=== PATIENT | male | born 1980 | race Caucasian/White ===

== ENCOUNTER 2016-08-23 21:10 | Emergency (ER) | payer OTHER ==
[~2016-08-23] VITALS: Ht 172.7 cm; Wt 127.8 kg
[2016-08-23 21:14] VITALS: Ht 172.7 cm; Wt 127.8 kg
[2016-08-23] MEDS ORDERED: LEVO175T3 PO (21:46)
[2016-08-23] MEDS ORDERED: TOPI100T20 PO (21:46)
[2016-08-23] MEDS ORDERED: FLUO20CA35 PO (21:46)
[2016-08-23] MEDS ORDERED: PERP1TAB10 PO (21:46)
[2016-08-23] MEDS ORDERED: SODIUM CHLORIDE 0.9% 1000ML 1,000 ML IV STA ×2 (21:54)
[2016-08-23 22:34] VITALS: TEMP 39.5
[2016-08-23 22:42] LABS: HEMATOCRIT 46.2 % (42-52); MEAN CELL VOLUME 88.8 fL (80-100); MEAN CORPUSCULAR HEMOGLOBIN 31.7 pg (25-34); MEAN CORPUSCULAR HGB CONC 35.7 g/dl (32-36); MEAN PLATELET VOLUME 9.3 fL (7.4-10.4); PLATELET COUNT 185 K/uL (130-400)
[2016-08-23 23:02] LABS: COMPLETE YES; IG% 0.3 %; LYMPH ABS # 0.73 K/uL (1.2-3.4); NEUT % 85.7 %
[2016-08-23 23:13] LABS: BLOOD UREA NITROGEN 28 mg/dl (7-18); BUN/CREATININE RATIO 21.6 (10-20); CALCIUM 8.6 mg/dl (8.5-10.1); CARBON DIOXIDE 20 mmol/L (21-32); CHLORIDE 105 mmol/L (98-107); GLUCOSE 91 mg/dl (70-99); SODIUM 138 mmol/L (136-145)
[2016-08-24] MEDS ORDERED: POTASSIUM CHLORIDE 10 MEQ TABCR PO STA (00:08)
[2016-08-24 00:29] VITALS: BP 133/89; PULSE 111; O2SAT 96
[2016-08-24] MEDS ORDERED: ONDANSETRON HOME PACK 4MG OD TAB PO ONE (00:30)
--- NOTE | 2016-08-24 03:21 | EMERGENCY ROOM VISIT NOTE ---
History First contact with patient: 21:28 Chief Complaint: DIARRHEA Stated Complaint: GLASSY EYES, DIARRHEA,VOMITING,ELEVATED TEMP History of Present Illness The patient is a 35 year old male who presents to the Emergency Room with complaints of nausea, vomiting, diarrhea and fever for the past day. Patient had undercooked chicken on accident yesterday. He's been vomiting and having diarrhea since that seems to be tapering off. He's had a low-grade temperature. Patient denies chest pain, dyspnea, neck stiffness, abdominal pain , blood or black in his stool or vomit. No recent antibiotics. No well water. Family is requesting stool testing. Review of Systems See HPI for pertinent positives & negatives. A total of 10 systems reviewed and were otherwise negative. Past Medical/Surgical History Hypothyroidism, bipolar, OCD, autism, anxiety Social History Smoking Status: Never Smoker Current/Historical Medications Scheduled Fluoxetine (Prozac), 40 MG PO DAILY Levothyroxine Sodium (Levothyroxine Sodium), 175 MCG PO DAILY Perphenazine (Trilafon), 2 MG PO DAILY Topiramate (Topamax), 100 MG PO TID Allergies Coded Allergies: No Known Allergies (Verified , 08/21/02) Physical Exam Vital Signs Date Time Temp Pulse Resp B/P Pulse Ox O2 Delivery O2 Flow Rate FiO2 08/24/16 00:29 111 18 133/89 96 Room Air 08/23/16 22:34 39.5 92 20 139/92 97 Room Air 08/23/16 22:33 39.5 93 20 137/92 97 Room Air 08/23/16 22:30 39.5 93 20 137/92 97 08/23/16 21:14 37.2 108 18 126/77 94 Room Air Pain Rating (0-10): 0 Physical Exam VITALS: Vitals are noted on the nurse's note and reviewed by myself. Vital signs stable. GENERAL: Pleasant male, in no acute distress, nondiaphoretic, well-developed well-nourished. SKIN: The skin was without rashes, erythema, edema, or bruising. There is no tenting of the skin. Capillary reflex less than 2 seconds. HEAD: Normocephalic atraumatic. EARS: External auditory canals clear, tympanic membranes pearly blunt without erythema or effusion bilaterally. EYES: Pupils equal round and reactive to light and accommodation. Conjunctivae without injection, sclerae without icterus. Extraocular movements intact. NOSE: Patent, turbinates without inflammation or discharge. No sinus tenderness. MOUTH: Mucous membranes moist. Pharynx without erythema or exudate. Uvula midline. Airway patent. Tongue does not deviate. NECK: Supple without nuchal rigidity. No lymphadenopathy. No thyromegaly. Cervical spine is nontender. No JVD. HEART: Regular rate and rhythm without murmurs gallops or rubs. LUNGS: Clear to auscultation bilaterally without wheezes, rales or rhonchi. No dullness to percussion. No retractions or accessory muscle use. ABDOMEN: Positive bowel sounds x 4. Normal tympanic percussion. Soft, nontender, without masses or organomegaly. Hamilton sign negative. No guarding or rebound tenderness. MUSCULOSKELETAL: No muscle atrophy, erythema, or edema noted. NEURO: Patient was alert and oriented to person place and time. Normal sensation to light and sharp touch. No focal neurological deficits. Medical Decision & Procedures Laboratory Results 08/23/16 22:20 Red Blood Count 5.20, Mean Corpuscular Volume 88.8, Mean Corpuscular Hemoglobin 31.7, Mean Corpuscular Hemoglobin Concent 35.7, Mean Platelet Volume 9.3, Neutrophils (%) (Auto) 85.7, Lymphocytes (%) (Auto) 12.0, Monocytes (%) (Auto) 2.0, Eosinophils (%) (Auto) 0.0, Basophils (%) (Auto) 0.0, Neutrophils # (Auto) 5.23, Lymphocytes # (Auto) 0.73, Monocytes # (Auto) 0.12, Eosinophils # (Auto) 0.00, Basophils # (Auto) 0.00 08/23/16 22:20 08/23/16 23:40 Test 08/23/16 22:20 08/23/16 22:35 White Blood Count 6.10 K/uL (4.8-10.8) Red Blood Count 5.20 M/uL (4.7-6.1) Hemoglobin 16.5 g/dL (14.0-18.0) Hematocrit 46.2 % (42-52) Mean Corpuscular Volume 88.8 fL (80-100) Mean Corpuscular Hemoglobin 31.7 pg (25-34) Mean Corpuscular Hemoglobin Concent 35.7 g/dl (32-36) Platelet Count 185 K/uL (130-400) Mean Platelet Volume 9.3 fL (7.4-10.4) Neutrophils (%) (Auto) 85.7 % Lymphocytes (%) (Auto) 12.0 % Monocytes (%) (Auto) 2.0 % Eosinophils (%) (Auto) 0.0 % Basophils (%) (Auto) 0.0 % Neutrophils # (Auto) 5.23 K/uL (1.4-6.5) Lymphocytes # (Auto) 0.73 K/uL (1.2-3.4) Monocytes # (Auto) 0.12 K/uL (0.11-0.59) Eosinophils # (Auto) 0.00 K/uL (0-0.5) Basophils # (Auto) 0.00 K/uL (0-0.2) RDW Standard Deviation 41.9 fL (36.4-46.3) RDW Coefficient of Variation 12.9 % (11.5-14.5) Immature Granulocyte % (Auto) 0.3 % Immature Granulocyte # (Auto) 0.02 K/uL (0.00-0.02) Red Blood Cell Morphology Unremarkable Anion Gap 13.0 mmol/L (3-11) Est Creatinine Clear Calc Drug Dose 104.4 ml/min Estimated GFR () 82.5 Estimated GFR (Non- 71.2 BUN/Creatinine Ratio 21.6 (10-20) Calcium Level 8.6 mg/dl (8.5-10.1) Influenza Type A Antigen Neg for Influ A (NEG) Influenza Type B Antigen Neg for Influ B (NEG) Date/Time Source Procedure Growth Status 08/23/16 22:20 Stool C.difficile Toxin B Gene (PCR) - Final No C. difficile toxin B gene detected Complete Medications Administered Medications (Trade) Dose Ordered Sig/Oyrdy Route Start Time Stop Time Status Last Admin Dose Admin Sodium Chloride 1,000 ml @ 999 mls/hr Q1H1M STAT IV 08/23/16 21:54 08/23/16 22:54 DC 08/23/16 22:39 999 MLS/HR Sodium Chloride (Nss 1000ml) 1,000 ml @ 200 mls/hr Q5H STAT IV 08/23/16 21:54 08/24/16 01:25 DC 08/23/16 21:54 200 MLS/HR Potassium Chloride (Klor-Con M10) 40 meq NOW STAT PO 08/24/16 00:08 08/24/16 00:09 DC 08/24/16 00:59 40 MEQ Ondansetron HCl (ZOFRAN ODT 4MG Home Pack) 1 homepack UD ONCE PO 08/24/16 00:30 08/24/16 00:31 DC 08/24/16 00:59 1 HOMEPACK ED Course Prior records/ancillary studies reviewed. Triage Nursing notes reviewed. Additional history obtained from the family. The patient's history was concerning for nausea, vomiting, diarrhea, and abdominal pain. Differential diagnosis: Etiologies such as gastroenteritis, food borne illness, infections, appendicitis , diverticulitis, inflammatory bowel disease, obstruction, GI bleed, biliary pathology, as well as others were entertained. Physical examination findings: As above. Abdominal examination revealed no tenderness. Vital signs reviewed and revealed stable. ER treatment provided: IV hydration 1 L NSS. Zofran On reassessment the patient felt better. Patient was tolerating p.o. intake. Diagnostics interpretation by me: The labs revealed no worrisome leukocytosis. Mild hypokalemia and this was replaced orally. Negative C. difficile Stool cultures pending This appears to be consistent with vomiting and diarrhea most likely viral in etiology. Patient did not have an acute abdomen on exam. He was well- appearing. He is tolerating fluids. Family was advised to follow-up with family medicine in a couple days for stool test results or here in the ER sooner for abdominal pain, fevers, vomiting, worsening signs or symptoms or as needed. By the evaluation outlined above emergent etiologies such as appendicitis, diverticulitis, obstruction, cardiac sources, mesenteric ischemia , aortic pathology, inflammatory bowel disease, renal colic, PUD, biliary pathology, UTI, as well as others were deemed relatively unlikely. The pt informed about the findings as listed above. All questions were answered and pleased with the treatment. Return instructions were outlined and the patient was discharged in stable condition. Outpatient prescription management: zofran Referral: The patient was referred to their primary care physician for follow-up in 2 to 3 days for a recheck of the current condition. Medical Decision As above Impression Primary Impression: Nausea vomiting and diarrhea Additional Impression: Hypokalemia Departure Information Dispostion Home / Self-Care Condition GOOD Forms WORK / SCHOOL INSTRUCTIONS, HOME CARE DOCUMENTATION FORM, Days off work : 2 Work Instructions, IMPORTANT VISIT INFORMATION Patient Instructions Vomit Diarrhea Self Care, My [facility] Additional Instructions DO NOT drive, drink alcohol, operate machinery, or perform dangerous activities today. You were given medications in the ER that can affect your ability to safely function or operate a vehicle. Zofran(odansetron) tablets 4mg: Take one and allow it to dissolve in your mouth every four to six hours as needed for nausea or vomiting. Acetaminophen(Tylenol) may be used for fever or pain. Use 1000mg every six hours as needed. Avoid using more than 3000mg in a 24 hour period. Rest and drink plenty of fluids as tolerated. Slow sips of water or sports drinks are recommended instead of large amounts all at once. Continue current medications. Once your stomach is settled start with a clear liquid diet (jello, soup broth, etc.) and then advance as tolerated. You should avoid full, heavy meals for about 24 hrs from the time your symptoms resolved. Return to the ER for persistent vomiting, fevers, abdominal pain, chest pains, difficulty breathing, black or bloody stools, worsening of your condition, or as needed. Follow up with your primary physician in 2-3 days for a recheck of your current condition and for your stool culture results. Problem Qualifiers
== END 2016-08-24 01:05 | disposition home or self-care (01) ==
LOC: C.EDB 21:11 → C.EDA 08-24 01:05
DX: R11.2 Nausea with vomiting, unspecified (principal); R19.7 Diarrhea, unspecified; E87.6 Hypokalemia; E03.9 Hypothyroidism, unspecified; F31.9 Bipolar disorder, unspecified; F84.0 Autistic disorder; F41.9 Anxiety disorder, unspecified; F42.9 Obsessive-compulsive disorder, unspecified; Z79.899 Other long term (current) drug therapy

== ENCOUNTER → 2016-11-16 | Outpatient (CLI) | payer OTHER ==
[~2016-11-16] MED LIST: FLUO20CA35 PO; LEVO175T3 PO; PERP1TAB10 PO; TOPI100T20 PO
[2016-11-16 09:46] LABS: BLOOD UREA NITROGEN 15 mg/dl (7-18); BUN/CREATININE RATIO 17.6 (10-20); CARBON DIOXIDE 23 mmol/L (21-32); CHLORIDE 111 mmol/L (98-107); CREATININE 0.84 mg/dl (0.60-1.40); GLUCOSE 104 mg/dl (70-99); POTASSIUM 3.6 mmol/L (3.5-5.1); SODIUM 141 mmol/L (136-145); TRIGLYCERIDES 89 mg/dl (0-150); VERY LOW DENSITY LIPOPROT CALC 18 mg/dl
[2016-11-16 09:49] LABS: CALCIUM 8.8 mg/dl (8.5-10.1)
[2016-11-16 09:56] LABS: CHOLESTEROL 108 mg/dl (0-200); CHOLESTEROL/HDL RATIO 2.4; HDL CHOLESTEROL 45 mg/dl; LDL CHOLESTEROL CALCULATED 45 mg/dl; THYROID STIMULATING HORMONE 0.899 uIu/ml (0.300-4.500)
== END | disposition home or self-care (01) ==
LOC: C.LAB1850 08:15
PROVIDERS: ATTEND Internal Medicine
DX: E03.9 Hypothyroidism, unspecified (principal); E66.9 Obesity, unspecified

== ENCOUNTER → 2017-08-03 | Day surgery (SDC) | payer OTHER ==
[2017-07-10 13:50] VITALS: BMI 46.0
--- NOTE | 2017-07-13 14:40 | PAT Medication Instructions ---
Service Date Jul 13, 2017. Current Home Medication List Fluoxetine (Prozac), 40 MG PO QAM Levothyroxine Sodium (Levothyroxine Sodium), 175 MCG PO QAM Perphenazine (Trilafon), 2 MG PO QAM Topiramate (Topamax), 100 MG PO TID Medication Instructions For Your Scheduled Surgery - Take the following medications the morning of surgery with a sip of water OTHERWISE NOTHING TO EAT OR DRINK AFTER MIDNIGHT: Fluoxetine (Prozac), 40 MG PO QAM Levothyroxine Sodium (Levothyroxine Sodium), 175 MCG PO QAM Perphenazine (Trilafon), 2 MG PO QAM Topiramate (Topamax), 100 MG PO TID - Take the following medications as scheduled the night before surgery: Topiramate (Topamax), 100 MG PO TID If you have any questions please call us at [phone] or [phone] or [phone]
[2017-07-13 15:33] LABS: HEMATOCRIT 42.9 % (42-52); HEMOGLOBIN 15.3 g/dL (14.0-18.0); MEAN CELL VOLUME 89.6 fL (80-100); MEAN CORPUSCULAR HEMOGLOBIN 31.9 pg (25-34); MEAN CORPUSCULAR HGB CONC 35.7 g/dl (32-36); MEAN PLATELET VOLUME 9.6 fL (7.4-10.4); PLATELET COUNT 195 K/uL (130-400); RED CELL DISTRIBUTION WIDTH CV 12.8 % (11.5-14.5); RED CELL DISTRIBUTION WIDTH SD 41.2 fL (36.4-46.3); WHITE BLOOD COUNT 7.78 K/uL (4.8-10.8)
[2017-07-13 16:24] LABS: CREATININE 0.98 mg/dl (0.60-1.40); POTASSIUM 3.9 mmol/L (3.5-5.1)
[2017-07-19 11:11] VITALS: Ht 170.2 cm; Wt 133.2 kg
[~2017-08-03] VITALS: Ht 170.2 cm; Wt 133.2 kg
[~2017-08-03] MED LIST changes: +ATROPINE SULFATE 0.1 MG/ML 5ML SYR IV PRN; +BACITRACIN OINT 15 GM TUBE ONE; +BUPIVACAINE/EPINEPHRINE 0.5% MPF 1:200,000 30 ML VIAL ONE; +CEFAZOLIN 3000MG IV PUSH 15 ML IV SCH; +DEXAMETHASONE SOD INJ 4 MG/ML VIAL ONE; +EpHEDrine SULFATE INJ 50 MG/ML AMP IV PRN; +FENTANYL CITRATE INJ 50 MCG/1 ML 2 ML VIAL ONE; +IBUPROFEN 600 MG TAB PO PRN; +LACTATED RINGER'S 1000ML 1,000 ML IV SCH; +LIDOCAINE HCL 2% 2 ML VIAL (20MG/ML) ONE; +MIDAZOLAM HCL 1 MG/ML 2ML VIAL ONE; +ONDANSETRON INJ 2 MG/ML 2 ML VIAL IV PRN; +ONDANSETRON INJ 2 MG/ML 2 ML VIAL ONE; +PROPOFOL IV EMULSION 10 MG/ML 20 ML VIAL IV ONE; +SODIUM CHLORIDE 0.9% 1000ML 1,000 ML IV SCH
--- NOTE | 2017-08-03 07:59 | History & Physical Bridge Note ---
H&P Re-Evaluation Bridge Note: I have examined the patient, reviewed the History & Physical and in the interval since the performance of the History & Physical I have noted the following changes of clinical significance: No changes noted
--- NOTE | 2017-08-03 08:41 | [facility] Post Operative Brief Note ---
Immediate Operative Summary Operative Date Aug 03, 2017. Pre-Operative Diagnosis Soft tissue cyst of chest Post-Operative Diagnosis Same as pre-op Procedure(s) Performed Chest Soft Tissue Cyst Excision Surgeon Crook Operator Surgeon(s) None Estimated Blood Loss 2ML Findings Consistent with Post-Op Diagnosis Specimens A.Chest wall cyst Anesthesia Type MAC Complication(s) none
[2017-08-03 08:45] VITALS: TEMP 36.7
--- NOTE | 2017-08-03 08:53 | [facility] Operative Report ---
Operative Report Operative Date Aug 03, 2017. Pre-Operative Diagnosis Soft tissue cyst of chest Post-Operative Diagnosis Same as pre-op Procedure(s) Performed Chest Soft Tissue Cyst Excision Surgeon Supervisor Train Operations Surgeon(s) None Estimated Blood Loss 2ML Findings soft tissue cyst of chest. approx 3 cm Specimens A.Chest wall cyst Anesthesia MAC/local Disposition Recovery Room / PACU Description of Procedure After informed consent was obtained the patient was taken to the operating room and placed in a supine position. IV sedation was administered by anesthesia and titrated to effect. After adequate sedation the chest was sterilely prepped and draped in usual fashion. Marcaine with epinephrine was injected around the lesion to create a skin wheal. A 15 blade scalpel was then used to make a wide ellipse around what was an approximately 3 cm cyst. Electrocautery was used to carry this incision down through the soft tissue until we were below the cyst cavity. We're able to remove it intact and send it to pathology. The wound was thoroughly irrigated and closed in 2 layers with 3-0 Vicryl for deep layers and 3-0 nylon in simple interrupted fashion for the skin. Antibiotic ointment and sterile dressing were applied. The patient was awaken and transferred recovery in stable condition I attest to the content of the Intraoperative Record and any orders documented therein. Any exceptions are noted below.
--- NOTE | 2017-08-03 09:04 | Anesthesia Progress Nt - [facility] ---
Anesthesia Post Op Note Date & Time Aug 03, 2017 at 09:04 Vital Signs Pain Intensity: 0 Vital Signs Past 12 Hours Date Time Temp Pulse Resp B/P (MAP) Pulse Ox O2 Delivery O2 Flow Rate FiO2 08/03/17 07:17 37.0 49 20 131/75 (93) 98 Room Air Notes Mental Status: alert / awake / arousable, participated in evaluation Pt Amnestic to Procedure: Yes Nausea / Vomiting: adequately controlled Pain: adequately controlled Airway Patency, RR, SpO2: stable & adequate BP & HR: stable & adequate Hydration State: stable & adequate Anesthetic Complications: no major complications apparent
[2017-08-03 09:18] VITALS: BP 117/68; PULSE 45; O2SAT 97
--- NOTE | 2017-08-03 09:22 | Discharge Instructions-SurgCtr ---
Discharge Instructions Date of Service Aug 03, 2017. Visit Reason for Visit: Soft Tissue Cyst Of Chest; Asperger's Disorder Discharge Discharge Diagnosis / Problem: chest wall cyst Discharge Goals Goal(s): Decrease discomfort, Therapeutic intervention Activity Recommendations Activity Limitations: resume your previous activity Anesthesia . Post Anesthesia Instructions: If you have had General Anesthesia or IV Sedation: * Do not drive today. * Resume driving when surgeon permits. * Do not make important decisions or sign legal documents today. * Call surgeon for: 1. Temperature elevations greater than 101 degrees F. 2. Uncontrollable pain. 3. Excessive bleeding. 4. Persistent nausea and vomiting. 5. Medication intolerance (nausea, vomiting or rash). * For nausea and vomiting use only clear liquids such as: tea, soda, bouillon until nausea subsides, then gradually increase diet as tolerated. * If you have any concerns or questions, call your surgeon's office. If physician is unavailable and it is an emergency, call 911 or go to the nearest emergency room. . Instructions / Follow-Up Instructions / Follow-Up follow up in 10-14 days.call [phone] for appointment. may use ibuprofen or tylenol as needed for any discomfort Diet Recommendations Home Diet: no limitations Procedures Procedures Performed: Chest Soft Tissue Cyst Excision Pending Studies Studies pending at discharge: yes (path report) List of pending studies: path report Medical Emergencies . Who to Call and When: Medical Emergencies: If at any time you feel your situation is an emergency, please call 911 immediately. . Non-Emergent Contact Non-Emergency issues call your: Primary Care Provider, Surgeon . . "Provider Documentation" section prepared by Guzman Hardy. .
== END | disposition home or self-care (01) ==
LOC: X.SURG 06:58
PROVIDERS: ATTEND Surgery
DX: L72.0 Epidermal cyst (principal); F84.5 Asperger's syndrome; Z01.810 Encounter for preprocedural cardiovascular examination; Z01.812 Encounter for preprocedural laboratory examination